=== PATIENT | female | born 1995 | race African-American/Black ===

== ENCOUNTER 2016-02-26 23:35 | Emergency (ER) | payer BC ==
[~2016-02-26 23:35] MED LIST: ZOFR4TAB3 SL
[2016-02-26 23:37] VITALS: BP 109/73; PULSE 128; RESP 26; TEMP 98; O2SAT 97
[2016-02-27 00:45] VITALS: BP 132/85; PULSE 123; RESP 22; O2SAT 100
[2016-02-27] MEDS ORDERED: SODIUM CHLOR 0.9% 1000 ML INJ 1,000 ML IV SCH (00:50)
--- NOTE | 2016-02-27 00:55 | PD ---
HPI Chief Complaint: Psychiatric Symptoms Time Seen by Provider: 00:48 Travel History International Travel<30 days: No Contact w/Intl Traveler<30days: No Traveled to known affect area: No History of Present Illness HPI This is a 20-year-old female with no significant past medical history. She presents here for evaluation of anxiety, difficulty remembering things. She reports that for the past month she has had some anxiety and the sensation of confusion. According to her friend who is at bedside this evening she was at a meeting and supposed to get a speech but she ran out. She appeared very anxious according to the friend. The patient reports that she has been taking Benadryl to help her sleep at night. She took 4 Benadryl tablets tonight. At this point in time she is feeling anxious, confused. She denies any illicit drug use. She denies any alcohol use. She denies any headache, fevers or chills, recent illness. She denies any suicidal or homicidal ideation. She denies any recent acute life stressors. No other complaints. PFSH Past Medical History Medical History: Denies Significant Hx Immunizations Current: Yes Tetanus Vaccination: Unknown Influenza Vaccination: No ?: Not LMP: 3 WEEKS AGO Past Surgical History Surgical History: No Previous Surgery Social History Alcohol Use: Yes (rare) Tobacco Use: No Substance Use: No Allergies-Medications (Allergen,Severity, Reaction): Coded Allergies: No Known Allergies (Unverified , 02/27/16) Reported Meds & Prescriptions Reported Meds & Active Scripts Active Zofran ODT (Ondansetron HCl) 4 Mg Tab 4 Mg SL Q6H PRN FOR NAUSEA/VOMITING Review of Systems Except as stated in HPI: all other systems reviewed are Neg Physical Exam Narrative GENERAL: This is an anxious appearing female who is in no acute distress. SKIN: Warm and dry. HEAD: Atraumatic. Normocephalic. EYES: Pupils equal and round. No scleral icterus. No injection or drainage. ENT: No nasal bleeding or discharge. Mucous membranes pink and moist. NECK: Trachea midline. No JVD. CARDIOVASCULAR: Regular rate and rhythm. No murmur appreciated. RESPIRATORY: No accessory muscle use. Clear to auscultation. Breath sounds equal bilaterally. GASTROINTESTINAL: Abdomen soft, non-tender, nondistended. MUSCULOSKELETAL: No obvious deformities. NEUROLOGICAL: Awake and alert. No obvious cranial nerve deficits. Motor grossly within normal limits. Normal speech. Alert and oriented to person, place, time, situation. PSYCHIATRIC: Flat affect, anxious mood. Poor eye contact. Minimally conversive. Data Data Last Documented VS Vital Signs Date Time Temp Pulse Resp B/P Pulse Ox O2 Delivery O2 Flow Rate FiO2 02/27/16 02:00 119 22 112/67 100 Room Air 02/26/16 23:37 98.0 Orders Electrocardiogram (02/27/16 00:50) Alcohol (Ethanol) (02/27/16 00:50) Complete Blood Count With Diff (02/27/16 00:50) Comprehensive Metabolic Panel (02/27/16 00:50) Drug Screen, Random Urine (02/27/16 00:50) Salicylates (Aspirin) (02/27/16 00:50) Tylenol (Acetaminophen) (02/27/16 00:50) Thyroid Stimulating Hormone (02/27/16 00:50) Urinalysis - C+S If Indicated (02/27/16 00:50) Ecg Monitoring (02/27/16 00:50) Iv Access Insert/Monitor (02/27/16 00:50) Sodium Chloride 0.9% Flush (Ns Flush) (02/27/16 01:00) Sodium Chlor 0.9% 1000 Ml Inj (Ns 1000 M (02/27/16 00:50) Ct Brain W/O Iv Contrast(Rout) (02/27/16 00:50) Lorazepam Inj (Ativan Inj) (02/27/16 01:00) Ed Urine Pregnancytest Poc (02/27/16 00:52) Lorazepam Inj (Ativan Inj) (02/27/16 02:00) Potassium Chloride (Kcl) (02/27/16 03:30) Labs Laboratory Tests Test 02/27/16 02/27/16 01:10 02:50 White Blood Count 9.8 TH/MM3 Red Blood Count 4.15 MIL/MM3 Hemoglobin 12.1 GM/DL Hematocrit 35.7 % Mean Corpuscular Volume 85.9 FL Mean Corpuscular Hemoglobin 29.1 PG Mean Corpuscular Hemoglobin 33.9 % Concent Red Cell Distribution Width 13.3 % Platelet Count 309 TH/MM3 Mean Platelet Volume 7.9 FL Neutrophils (%) (Auto) 73.8 % Lymphocytes (%) (Auto) 18.6 % Monocytes (%) (Auto) 7.0 % Eosinophils (%) (Auto) 0.4 % Basophils (%) (Auto) 0.2 % Neutrophils # (Auto) 7.3 TH/MM3 Lymphocytes # (Auto) 1.8 TH/MM3 Monocytes # (Auto) 0.7 TH/MM3 Eosinophils # (Auto) 0.0 TH/MM3 Basophils # (Auto) 0.0 TH/MM3 CBC Comment DIFF FINAL Differential Comment Sodium Level 140 MEQ/L Potassium Level 3.3 MEQ/L Chloride Level 106 MEQ/L Carbon Dioxide Level 21.7 MEQ/L Anion Gap 12 MEQ/L Blood Urea Nitrogen 10 MG/DL Creatinine 1.03 MG/DL Estimat Glomerular Filtration 83 ML/MIN Rate Random Glucose 75 MG/DL Calcium Level 8.8 MG/DL Total Bilirubin 0.6 MG/DL Aspartate Amino Transf 10 U/L (AST/SGOT) Alanine Aminotransferase 13 U/L (ALT/SGPT) Alkaline Phosphatase 70 U/L Total Protein 7.2 GM/DL Albumin 4.9 GM/DL Thyroid Stimulating Hormone 2.960 uIU/ML 3rd Gen Salicylates Level LESS THAN 1.7 MG/DL Acetaminophen Level LESS THAN 2.0 MCG/ML Ethyl Alcohol Level LESS THAN 3 MG/DL Urine Color YELLOW Urine Turbidity CLEAR Urine pH 5.5 Urine Specific [place] 1.016 Urine Protein TRACE mg/dL Urine Glucose (UA) NEG mg/dL Urine Ketones 40 mg/dL Urine Occult Blood NEG Urine Nitrite NEG Urine Bilirubin NEG Urine Urobilinogen LESS THAN 2.0 MG/DL Urine Leukocyte Esterase NEG Urine WBC 1 /hpf Urine Squamous Epithelial <1 /hpf Cells Urine Renal Epithelial Cells <1 /hpf Urine Mucus FEW /lpf Microscopic Urinalysis Comment CATH-CULT NOT IND Urine Opiates Screen NEG Urine Barbiturates Screen NEG Urine Amphetamines Screen NEG Urine Benzodiazepines Screen NEG Urine Cocaine Screen NEG Urine Cannabinoids Screen NEG MDM Medical Decision Making Medical Screen Exam Complete: Yes Emergency Medical Condition: Yes Medical Record Reviewed: Yes Interpretation(s) EKG reveals sinus tachycardia Potassium 3.3, BUN 1.03 Urinalysis 40 ketones Negative urine test Head CT normal Differential Diagnosis Generalized anxiety disorder, social anxiety disorder, acute psychosis, encephalitis, meningitis, substance-induced disorder, doubt TIA Narrative Course This is a 20-year-old female who for the past month has been experiencing anxiety, difficulty concentrating and remembering things. She has been self- medicating with Benadryl, primarily at night, to help her sleep. Upon initial examination she is tachycardic, anxious with a flat affect, minimally conversive , poor eye contact. She has no focal neurologic deficits. I suspect that her symptoms are primarily related to anxiety. Plan is for basic lab work, IV fluids, Ativan, CT of the brain. The patient will be reassessed. 0345: Upon reexamination the patient feels significantly improved. She appears much more calm and is able to converse more normally and establish better eye contact. I again had a discussion with her regarding her situation and her symptoms. I again asked her if she feels depressed or suicidal and she is denying this. She would likely benefit as an outpatient if she followed up with a psychiatrist and she agrees. The patient's medical workup is essentially unremarkable except for potassium of 3.3. She was given oral potassium chloride here. She is stable for discharge. Diagnosis Primary Impression: Anxiety Referrals: Wallace Syed MD Additional Instructions: Follow-up with a psychiatrist such as Dr. Syed. Return for any new or worsening symptoms. Med/Other Pt SpecificInfo: No Change to Meds Disposition: 01 DISCHARGE HOME Condition: Stable Eugene Astudillo Feb 27, 2016 00:55
[2016-02-27] MEDS ORDERED: LORazepam 2 MG/ML VIAL IV PUSH ONE ×2 (01:00→02:00)
[2016-02-27] MEDS ORDERED: SODIUM CHLORIDE 0.9% FLUSH 5 ML FLUSH IVF PRN (01:00)
[2016-02-27 01:30] VITALS: BP 128/74; PULSE 108; RESP 22; O2SAT 100
[2016-02-27 01:40] LABS: AUTOMATED NEUTROPHIL # 7.3 TH/MM3 (1.8-7.7); BASOPHIL % 0.2 % (0.0-2.0); EOSINOPHIL % 0.4 % (0.0-4.0); HEMATOCRIT 35.7 % (35.0-46.0); HEMO FLAGS DIFF FINAL; LYMPH % 18.6 % (9.0-44.0); LYMPHOCYTE # 1.8 TH/MM3 (1.0-4.8); MEAN CELL VOLUME 85.9 FL (80.0-100.0); MEAN CORPUSCULAR HEMOGLOBIN 29.1 PG (27.0-34.0); MEAN CORPUSCULAR HGB CONC 33.9 % (32.0-36.0); NEUT % 73.8 % (16.0-70.0); PLATELET COUNT 309 TH/MM3 (150-450); RED BLOOD COUNT 4.15 MIL/MM3 (4.00-5.30); RED CELL DISTRIBUTION WIDTH 13.3 % (11.6-17.2); WHITE BLOOD COUNT 9.8 TH/MM3 (4.0-11.0)
[2016-02-27 01:56] LABS: ANION GAP 12 MEQ/L (5-15)
[2016-02-27 02:00] VITALS: BP 112/67; PULSE 119; RESP 22; O2SAT 100
[2016-02-27 02:13] LABS: ACETAMINOPHEN LESS THAN 2.0 MCG/ML (10.0-30.0); ALKALINE PHOSPHATASE 70 U/L (45-117); ALT (GPT) 13 U/L (9-42); AST (GOT) 10 U/L (16-38); BICARBONATE 21.7 MEQ/L (21.0-32.0); BLOOD UREA NITROGEN 10 MG/DL (7-18); CHLORIDE 106 MEQ/L (98-107); GLOMERULAR FILTRATION RATE 83 ML/MIN (>89); POTASSIUM 3.3 MEQ/L (3.5-5.1); SODIUM (NA) 140 MEQ/L (136-145); TOTAL BILIRUBIN ADULT 0.6 MG/DL (0.2-1.0)
--- NOTE | 2016-02-27 02:37 | RADRPT ---
EXAM DATE/TIME: 02/27/2016 02:12 [facility] COMPARISON: No previous studies available for comparison. INDICATIONS : Dizziness along with anxiety and confusion. RADIATION DOSE: 36.33 CTDIvol (mGy) MEDICAL HISTORY : None SURGICAL HISTORY : None. ENCOUNTER: Initial ACUITY: 1 day PAIN SCALE: 2/10 LOCATION: cranial TECHNIQUE: Multiple contiguous axial images were obtained of the head. Using automated exposure control and adj ustment of the mA and/or kV according to patient size, radiation dose was kept as low as reasonably a chievable to obtain optimal diagnostic quality images. FINDINGS: CEREBRUM: The ventricles are normal for age. No evidence of midline shift, mass lesion, hemorrhage or acute in farction. No extra-axial fluid collections are seen. POSTERIOR FOSSA: The cerebellum and brainstem are intact. The 4th ventricle is midline. The cerebellopontine angle i s unremarkable. EXTRACRANIAL: The visualized portion of the orbits is intact. SKULL: The calvaria is intact. No evidence of skull fracture. CONCLUSION: Normal examination. Dawood Purvis MD on February 27, 2016 at 2:34 Board Certified Radiologist. This report was verified electronically.
[2016-02-27 03:21] LABS: BLOOD, URINE NEG (NEG); COMMENT (UR) CATH-CULT NOT IND; CULTURE IF INDICATED CATH CULTURE NOT IND; GLUCOSE,URINE NEG (NEG); KETONE, URINE 40 mg/dL (NEG); MUCUS URINE FEW /lpf (OCC); NITRITE,URINE NEG (NEG); PH, URINE 5.5 (5.0-8.5); RENAL EPITHELIAL CELLS <1 /hpf; SQUAMOUS EPITHELIAL CELL URINE <1 /hpf (0-5); URINE COLOR YELLOW (YELLW/STRAW)
[2016-02-27 03:22] LABS: AMPHETAMINE, URINE NEG (NEG); BARBITURATES, URINE NEG (NEG); COCAINE, URINE NEG (NEG)
[2016-02-27] MEDS ORDERED: POTASSIUM CHLORIDE 20 MEQ CONTROLLED RELEASE TAB PO ONE (03:30)
[2016-02-27 04:11] VITALS: BP_SYST 112; BP_SYST 115; BP_DIAS 67
--- NOTE | 2016-02-27 20:59 | EKG ---
Date Performed: 02/27/2016 Time Performed: 00:57:39 PTAGE: 20 years EKG: SINUS TACHYCARDIA NONSPECIFIC T-WAVE ABNORMALITY ABNORMAL RHYTHM ECG NO PREVIOUS TRACING DOCTOR: Jesus Stratton Interpretating Date/Time 02/27/2016 20:58:39
== END 2016-02-27 04:24 | disposition home or self-care (01) ==
LOC: NEPA 23:35
DX: F41.9 Anxiety disorder, unspecified (principal); R41.0 Disorientation, unspecified; R00.0 Tachycardia, unspecified
CPT/HCPCS: 70450; 80053; 80307; 80329; 81001; 84443; 84703; 85025; 93005; 96374; 96376; 99284; J2060; J7030; 80320; G0480